=== PATIENT | male | born 1980 | race African-American/Black ===

== ENCOUNTER 2020-06-06 10:34 | Day surgery (SDC) | payer MEDICARE, OTHER ==
[2020-06-06] MEDS ORDERED: PROPOFOL 200 MG/20 ML BOTTLE IV ONE (10:35)
[2020-06-06] MEDS ORDERED: GLYCOPYRROLATE 0.2 MG/ML VIAL MC ONE (10:35)
[2020-06-06] MEDS ORDERED: VECURONIUM BROMIDE 10 MG VIAL IV ONE (10:35)
[2020-06-06] MEDS ORDERED: LIDOCAINE-MPF 2% 5 ML VIAL MC ONE (10:35)
[2020-06-06] MEDS ORDERED: DEXAMETHASONE SOD PHOSPHATE 4 MG INJ IV ONE (10:35)
[2020-06-06] MEDS ORDERED: NEOSTIGMINE METHYLSULFATE 10 MG/10 ML VIAL IM ONE (10:35)
[2020-06-06] MEDS ORDERED: IV LACTATED RINGERS SOLUTION 1,000 ML IV PRN (11:00)
[2020-06-06] MEDS ORDERED: CEFAZOLIN 2 G in IV DEXTROSE 5% 100 ML IV ONE (11:30)
[2020-06-06] MEDS ORDERED: BUPIVACAINE/EPI PF 0.5% 10 ML VIAL ONE (13:01)
[2020-06-06] MEDS ORDERED: BACITRACIN ZINC OINT 15 GM TUBE ONE (13:01)
[2020-06-06] MEDS ORDERED: LIDOCAINE HCL 1% 20 ML VIAL ONE (13:01)
[2020-06-06] MEDS ORDERED: FENTANYL CITRATE 250 MCG/5 ML AMPUL ONE (13:02)
[2020-06-06] MEDS ORDERED: MIDAZOLAM HCL 2 MG/2 ML VIAL ONE (13:03)
[2020-06-06] MEDS ORDERED: SEVOFLURANE 250 ML BOTTLE ONE (13:09)
[2020-06-06] MEDS ORDERED: HYDROMORPHONE 1 MG/1 ML DISP.SYRIN ONE ×3 (15:09→15:33)
== END 2020-06-06 17:15 ==
LOC: DS 10:34
PROVIDERS: ATTEND Surgery
DX: K80.10 Calculus of gallbladder with chronic cholecystitis without obstruction (principal); K66.0 Peritoneal adhesions (postprocedural) (postinfection); M19.90 Unspecified osteoarthritis, unspecified site; F32.9 Major depressive disorder, single episode, unspecified; F41.9 Anxiety disorder, unspecified; F43.10 Post-traumatic stress disorder, unspecified; N18.9 Chronic kidney disease, unspecified; J43.9 Emphysema, unspecified; Z88.1 Allergy status to other antibiotic agents; Z88.8 Allergy status to other drugs, medicaments and biological substances; Z87.891 Personal history of nicotine dependence; Z79.899 Other long term (current) drug therapy; Z98.890 Other specified postprocedural states
CPT/HCPCS: 47562; J0690; J1100; J1170 ×3; J2250; J3010; J3490 ×5; J7060; J7120; A4663